=== PATIENT | female | born 1935 | race Caucasian/White ===

== ENCOUNTER 2018-08-15 11:55 | Outpatient (CLI) | payer MEDICARE, BC ==
--- NOTE | 2018-08-15 17:47 | PET ---
PET CT: 08/15/18 HISTORY: 83-year-old female with left breast cancer. Exam requested for re-staging. The patient is post chemotherapy. TECHNIQUE: Pet scan with CT attenuation correction is performed from the base of the brain to the proximal thigh s following the intravenous administration of 12.7 millicuries of 15-fluorodeoxyglucose in the right antecubital fossa. COMPARISON: 01/02/13. Interval development of a hypermetabolic left axillary lymph node is seen with an SUV of 4. No chasity hypermetabolism is seen in the neck, mediastinum, hilar regions, right axilla, abdomen or pelvis. No hypermetabolic pulmonary nodules, liver, adrenal or skeletal lesions are identified. There is physiologic activity in the GI and tracts and the visualized portions of the brain. There are small pericardial effusions seen on the CT scan used for attenuation correction. No pleural effusions or ascites are identified. There is colonic diverticulosis. 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 POS: [id number]
== END 2018-08-15 11:56 | disposition home or self-care (01) ==
LOC: PET 11:55
PROVIDERS: ATTEND Internal Medicine Hematology & Oncology
DX: C50.811 Malignant neoplasm of overlapping sites of right female breast (principal)
CPT/HCPCS: 78815; A9552